=== PATIENT | female | born 1945 | race Caucasian/White ===

== ENCOUNTER → 2016-08-04 | Outpatient (CLI) | payer MEDICARE ==
[~2016-08-04] MED LIST: OMNIPAQUE 350 MG/ML, 75ML BOTTLE ONE
== END | disposition home or self-care (01) ==
LOC: CFH 13:30
PROVIDERS: ATTEND Nurse Practitioner Family
DX: R91.1 Solitary pulmonary nodule (principal)
CPT/HCPCS: 71260; Q9967

== ENCOUNTER → 2016-12-13 | Outpatient (CLI) | payer MEDICARE | END | disposition home or self-care (01) | LOC: ROC 08:05 | PROVIDERS: ATTEND Radiology Radiation Oncology | DX: Z08 Encounter for follow-up examination after completed treatment for malignant neoplasm (principal); D33.3 Benign neoplasm of cranial nerves; H91.90 Unspecified hearing loss, unspecified ear | CPT/HCPCS: G0463 ==

== ENCOUNTER → 2018-06-10 | Outpatient (CLI) | payer MEDICARE ==
[~2018-06-10] MED LIST changes: +GADOBUTROL 7.5 MMOL/7.5 ML PFS ONE; -OMNIPAQUE 350 MG/ML, 75ML BOTTLE ONE
== END | disposition home or self-care (01) ==
LOC: CFH 09:54
PROVIDERS: ATTEND Radiology Radiation Oncology
DX: G31.9 Degenerative disease of nervous system, unspecified (principal); D33.3 Benign neoplasm of cranial nerves; D36.10 Benign neoplasm of peripheral nerves and autonomic nervous system, unspecified
CPT/HCPCS: 70553; A9585

== ENCOUNTER 2018-06-12 08:29 | Outpatient (CLI) | payer MEDICARE | END 2018-06-12 23:59 | disposition home or self-care (01) | LOC: ROC 08:29 | PROVIDERS: ATTEND Radiology Radiation Oncology | DX: D33.3 Benign neoplasm of cranial nerves (principal) | CPT/HCPCS: G0463 ==

== ENCOUNTER → 2019-12-10 | Outpatient (CLI) | payer MEDICARE ==
[~2019-12-10] MED LIST changes: -GADOBUTROL 7.5 MMOL/7.5 ML PFS ONE; +GADOTERATE 7.5 MMOL/15 ML SYR ONE
== END | disposition home or self-care (01) ==
LOC: CFH 09:06
PROVIDERS: ATTEND Radiology Radiation Oncology
DX: G31.89 Other specified degenerative diseases of nervous system (principal); D33.3 Benign neoplasm of cranial nerves; H61.892 Other specified disorders of left external ear
CPT/HCPCS: 70553; A9575